=== PATIENT | male | born 1970 | race Caucasian/White ===

== ENCOUNTER → 2017-03-31 | Outpatient (CLI) | payer OTHER ==
[~2017-03-31] VITALS: Ht 177.8 cm; Wt 127.0 kg
[~2017-03-31] MED LIST: AMOX1TAB16 PO; ASPI-825 PO; ATOR40TA28 PO; CEPH500 PO; COLL30OI TP; DOXY25SU3 PO; GLIP10TA9 PO; INSLAN SQ; INSU100V SQ; LEVO200 PO; LEVO25TA9 PO; LIDOCAINE HCL 2% 5 ML JELLY TP ONE; LISI10TA7 PO; LOVA20TA3 PO; METF1000 PO; METO25 PO; MUPI1OIN5 TP; PARO20TA24 PO; RIVA20TA PO
[2017-03-31 09:38] VITALS: BP 121/78
== END | disposition home or self-care (01) ==
LOC: HBOWC 08:45
PROVIDERS: ATTEND Emergency Medicine
DX: E11.621 Type 2 diabetes mellitus with foot ulcer (principal); L97.522 Non-pressure chronic ulcer of other part of left foot with fat layer exposed; L97.512 Non-pressure chronic ulcer of other part of right foot with fat layer exposed; I10 Essential (primary) hypertension; E11.51 Type 2 diabetes mellitus with diabetic peripheral angiopathy without gangrene; E78.00 Pure hypercholesterolemia, unspecified
CPT/HCPCS: 11042

== ENCOUNTER → 2017-04-07 | Outpatient (CLI) | payer OTHER ==
[~2017-04-07] MED LIST changes: -CEPH500 PO; -GLIP10TA9 PO; -LOVA20TA3 PO; +SILVER SULFADIAZINE 1% 25 GM CREAM TP ONE
[2017-04-07 10:22] VITALS: BP 142/77
[2017-04-07 11:29] LABS: GLUCOSE COMMENT 1 Doctor Notified; GLUCOSE,POINT OF CARE 140 MG/DL (70-110)
== END | disposition home or self-care (01) ==
LOC: HBOWC 09:57
PROVIDERS: ATTEND Emergency Medicine
DX: E11.621 Type 2 diabetes mellitus with foot ulcer (principal); L97.512 Non-pressure chronic ulcer of other part of right foot with fat layer exposed; L97.521 Non-pressure chronic ulcer of other part of left foot limited to breakdown of skin; E11.42 Type 2 diabetes mellitus with diabetic polyneuropathy; E11.51 Type 2 diabetes mellitus with diabetic peripheral angiopathy without gangrene; I10 Essential (primary) hypertension; E78.00 Pure hypercholesterolemia, unspecified; F17.200 Nicotine dependence, unspecified, uncomplicated; Z89.421 Acquired absence of other right toe(s)
CPT/HCPCS: 11042; 82962; Z7610

== ENCOUNTER → 2017-04-20 | Outpatient (CLI) | payer OTHER ==
[~2017-04-20] MED LIST changes: -LIDOCAINE HCL 2% 5 ML JELLY TP ONE; -SILVER SULFADIAZINE 1% 25 GM CREAM TP ONE
[2017-04-20 11:28] VITALS: BP 142/80
== END | disposition home or self-care (01) ==
LOC: HBOWC 10:09
PROVIDERS: ATTEND Podiatrist
DX: E11.621 Type 2 diabetes mellitus with foot ulcer (principal); L97.512 Non-pressure chronic ulcer of other part of right foot with fat layer exposed; E11.42 Type 2 diabetes mellitus with diabetic polyneuropathy; E11.51 Type 2 diabetes mellitus with diabetic peripheral angiopathy without gangrene; I10 Essential (primary) hypertension; E78.00 Pure hypercholesterolemia, unspecified; F17.200 Nicotine dependence, unspecified, uncomplicated; Z89.421 Acquired absence of other right toe(s)
CPT/HCPCS: 11042; 93922

== ENCOUNTER → 2017-05-04 | Outpatient (CLI) | payer OTHER ==
[~2017-05-04] MED LIST changes: -AMOX1TAB16 PO; -DOXY25SU3 PO; +LIDOCAINE HCL 2% 5 ML JELLY TP ONE
[2017-05-04 08:00] VITALS: BP 136/81
== END | disposition home or self-care (01) ==
LOC: HBOWC 07:28
PROVIDERS: ATTEND Podiatrist
DX: E11.621 Type 2 diabetes mellitus with foot ulcer (principal); L97.512 Non-pressure chronic ulcer of other part of right foot with fat layer exposed; E11.51 Type 2 diabetes mellitus with diabetic peripheral angiopathy without gangrene; E11.42 Type 2 diabetes mellitus with diabetic polyneuropathy; I10 Essential (primary) hypertension; E78.00 Pure hypercholesterolemia, unspecified; F17.200 Nicotine dependence, unspecified, uncomplicated; Z89.421 Acquired absence of other right toe(s)
CPT/HCPCS: 11042

== ENCOUNTER → 2017-05-18 | Outpatient (CLI) | payer OTHER ==
[2017-05-18 08:10] VITALS: BP 118/78
== END | disposition home or self-care (01) ==
LOC: HBOWC 07:41
PROVIDERS: ATTEND Podiatrist
DX: E11.621 Type 2 diabetes mellitus with foot ulcer (principal); L97.511 Non-pressure chronic ulcer of other part of right foot limited to breakdown of skin; I10 Essential (primary) hypertension; E11.42 Type 2 diabetes mellitus with diabetic polyneuropathy; E78.00 Pure hypercholesterolemia, unspecified; E11.51 Type 2 diabetes mellitus with diabetic peripheral angiopathy without gangrene; F17.200 Nicotine dependence, unspecified, uncomplicated; Z89.421 Acquired absence of other right toe(s)
CPT/HCPCS: 11042

== ENCOUNTER → 2017-05-26 | Outpatient (CLI) | payer OTHER ==
[~2017-05-26] MED LIST changes: +LIDOCAINE HCL 2% 5 ML JELLY ONE; -LIDOCAINE HCL 2% 5 ML JELLY TP ONE
[2017-05-26 08:17] VITALS: BP 122/77
== END | disposition home or self-care (01) ==
LOC: HBOWC 07:52
PROVIDERS: ATTEND Podiatrist
DX: E11.621 Type 2 diabetes mellitus with foot ulcer (principal); L97.511 Non-pressure chronic ulcer of other part of right foot limited to breakdown of skin; E78.00 Pure hypercholesterolemia, unspecified; E11.42 Type 2 diabetes mellitus with diabetic polyneuropathy; E11.51 Type 2 diabetes mellitus with diabetic peripheral angiopathy without gangrene; I10 Essential (primary) hypertension; F17.210 Nicotine dependence, cigarettes, uncomplicated; Z89.421 Acquired absence of other right toe(s)
CPT/HCPCS: 11042

== ENCOUNTER → 2017-07-14 | Outpatient (CLI) | payer OTHER ==
[~2017-07-14] MED LIST changes: -LIDOCAINE HCL 2% 5 ML JELLY ONE
[2017-07-14 10:00] VITALS: BP 117/67
== END | disposition home or self-care (01) ==
LOC: HBOWC 10:05
PROVIDERS: ATTEND Podiatrist
DX: E11.621 Type 2 diabetes mellitus with foot ulcer (principal); L97.511 Non-pressure chronic ulcer of other part of right foot limited to breakdown of skin; L97.521 Non-pressure chronic ulcer of other part of left foot limited to breakdown of skin; I10 Essential (primary) hypertension; E78.00 Pure hypercholesterolemia, unspecified; E11.42 Type 2 diabetes mellitus with diabetic polyneuropathy; E11.51 Type 2 diabetes mellitus with diabetic peripheral angiopathy without gangrene; F17.210 Nicotine dependence, cigarettes, uncomplicated; Z89.421 Acquired absence of other right toe(s)
CPT/HCPCS: 11042

== ENCOUNTER → 2017-07-28 | Outpatient (CLI) | payer OTHER ==
[~2017-07-28] MED LIST changes: +LIDOCAINE HCL 2% 5 ML JELLY TP ONE
[2017-07-28 10:44] VITALS: BP 111/76
== END | disposition home or self-care (01) ==
LOC: HBOWC 09:38
PROVIDERS: ATTEND Podiatrist
DX: E11.621 Type 2 diabetes mellitus with foot ulcer (principal); L97.511 Non-pressure chronic ulcer of other part of right foot limited to breakdown of skin; L97.521 Non-pressure chronic ulcer of other part of left foot limited to breakdown of skin; I10 Essential (primary) hypertension; E11.42 Type 2 diabetes mellitus with diabetic polyneuropathy; E11.51 Type 2 diabetes mellitus with diabetic peripheral angiopathy without gangrene; E78.00 Pure hypercholesterolemia, unspecified; F17.210 Nicotine dependence, cigarettes, uncomplicated; Z89.421 Acquired absence of other right toe(s)
CPT/HCPCS: 11042

== ENCOUNTER → 2017-08-11 | Outpatient (CLI) | payer OTHER ==
[~2017-08-11] MED LIST changes: +CHLORHEXIDINE GLUCONATE 4% 118 ML TOPICAL LIQUID TP ONE; +MUPIROCIN CALCIUM 2% 22 GM OINTMENT TP ONE
[2017-08-11 10:00] VITALS: BP 109/73
== END | disposition home or self-care (01) ==
LOC: HBOWC 09:49
PROVIDERS: ATTEND Podiatrist
DX: E11.621 Type 2 diabetes mellitus with foot ulcer (principal); L97.511 Non-pressure chronic ulcer of other part of right foot limited to breakdown of skin; I10 Essential (primary) hypertension; E78.00 Pure hypercholesterolemia, unspecified; E11.42 Type 2 diabetes mellitus with diabetic polyneuropathy; E11.51 Type 2 diabetes mellitus with diabetic peripheral angiopathy without gangrene; F17.210 Nicotine dependence, cigarettes, uncomplicated; Z89.421 Acquired absence of other right toe(s)
CPT/HCPCS: 11042